=== PATIENT | male | born 1980 | race Two or more races ===

== ENCOUNTER 2021-12-08 10:06 | Emergency (ER) | payer OTHER ==
[~2021-12-08] VITALS: Ht 182.9 cm; Wt 63.6 kg
[2021-12-08 10:15] VITALS: BP 116/93
[2021-12-08] MEDS ORDERED: DIPH25CA66 PO (11:22)
[2021-12-08] MEDS ORDERED: PRED20TA2 PO (11:22)
[2021-12-08] MEDS ORDERED: methylPREDNISolone SOD SUCC 125 MG/2 ML VL IM ONE (11:30)
[2021-12-08] MEDS ORDERED: EPINEPHrine HCL 1 MG/1 ML AMP SC ONE (11:30)
== END 2021-12-08 11:58 | disposition home or self-care (01) ==
LOC: ER 10:11
DX: T78.40XA Allergy, unspecified, initial encounter (principal); Z88.0 Allergy status to penicillin; X58.XXXA Exposure to other specified factors, initial encounter
CPT/HCPCS: 96372; 99284; J0171; J2930